=== PATIENT | female | born 1945 | race Caucasian/White ===

== ENCOUNTER → 2017-02-19 | Outpatient (CLI) | payer OTHER ==
[~2017-02-19] MED LIST: ALBUAER2 INH; AMT25 PO; ASPCH81X PO; ATOR-22 PO; CALC8.5C PO; LEVO137T3 PO; LISI-461 PO; OMEG10007 PO; PANT40TA PO; VITAMIN D PO
== END | disposition home or self-care (01) ==
LOC: C.MAMM 12:12
PROVIDERS: ATTEND Nurse Practitioner Family
DX: M85.88 Other specified disorders of bone density and structure, other site (principal); M81.0 Age-related osteoporosis without current pathological fracture

== ENCOUNTER → 2017-04-10 | Outpatient (CLI) | payer OTHER | END | disposition home or self-care (01) | LOC: C.LABSPEC 17:00 | PROVIDERS: ATTEND Nurse Practitioner Family | DX: R39.9 Unspecified symptoms and signs involving the genitourinary system (principal) ==

== ENCOUNTER → 2017-04-23 | Outpatient (CLI) | payer OTHER ==
--- NOTE | 2017-04-23 10:35 | DIAGNOSTIC IMAGING REPORT ---
(BARIUM SWALLOW) ESOPHAGUS CLINICAL HISTORY: Dysphagia. COMPARISON STUDY: None. FLUOROSCOPY TIME: 1.2 minutes. FINDINGS: 26 fluoroscopic images were obtained. Note is made of moderate to marked esophageal dysmotility. A moderate sized hiatal hernia is present. No reflux was elicited. A 13 mm barium tablet passed freely into the stomach. No esophageal mass or stricture was identified. IMPRESSION: 1. Moderate sized hiatal hernia. 2. Moderate to marked esophageal dysmotility. 3. 13 mm barium passed into the stomach. Electronically signed by: Nader Hubbard M.D. 04/23/2017 10:34 AM Dictated Date/Time: 04/23/2017 10:32 AM
== END | disposition home or self-care (01) ==
LOC: C.RAD 10:09
PROVIDERS: ATTEND Registered Nurse
DX: R13.10 Dysphagia, unspecified (principal); K44.9 Diaphragmatic hernia without obstruction or gangrene; K22.4 Dyskinesia of esophagus

== ENCOUNTER → 2018-04-04 | Outpatient (CLI) | payer OTHER ==
[2018-04-04 15:44] LABS: POTASSIUM 4.6 mmol/L (3.5-5.1)
== END | disposition home or self-care (01) ==
LOC: C.LAB1850 11:57
PROVIDERS: ATTEND Obstetrics & Gynecology
DX: N76.4 Abscess of vulva (principal)